=== PATIENT | male | born 1965 | race Caucasian/White ===

== ENCOUNTER 2021-01-19 11:58 | Observation (INO) | payer SELFPAY ==
[~2021-01-19] VITALS: Ht 175.3 cm; Wt 60.0 kg
--- NOTE | 2021-01-19 12:20 | NUR ---
BIBA FOR SI/SA, PER EMS PT WAS ASKING SURFACE ROOM SHOP OPTICIAN TO SHOOT HIM. PT CURRENTLY MAKING SAME STATEMENTS. PT CALM AND COOPERATIVE, A&O, RESPS EVEN AND UNLABORED, VSS, NADN. ALL SECURITY PRECAUTIONS IN PLACE, GARAGE DOORS DOWN, BELONGINGS BAGGED AND PLACED IN ED SECURITY LOCKER, SITTER WITHIN VIEW.
[2021-01-19 13:03] LABS: BASOPHILS % (AUTO) 2 % (0-1); EOSINOPHILS % (AUTO) 2 % (1-7); LYMPHOCYTES % (AUTO) 44 % (22-44); MEAN CORPUSCULAR HEMOGLOBIN 35.7 pg (27.5-34.5); MEAN CORPUSCULAR HGB CONC 34.7 g/dL (33.2-36.2); MEAN PLATELET VOLUME 7.5 fL (7.4-10.4); MONOCYTES % (AUTO) 6 % (2-9); NEUTROPHILS % (AUTO) 47 % (42-75); PLATELET COUNT 221 x10^3/uL (130-400); RED BLOOD COUNT 4.18 x10^6/uL (4.38-5.82); RED CELL DISTRIBUTION WIDTH 12.9 % (9.4-14.8)
[2021-01-19 13:08] LABS: ALANINE AMINOTRANSFERASE 76 U/L (12-78); ALBUMIN 4.2 g/dL (3.4-5.0); ANION GAP 14 mmol/L (5-15); CALCIUM 8.2 mg/dL (8.5-10.1); CHLORIDE 103 mmol/L (98-107); CREATININE 0.59 mg/dL (0.7-1.3); SALICYLATE LEVEL 8.6 mg/dL (2.8-20.0)
[2021-01-19 13:11] LABS: ALKALINE PHOSPHATASE 74 U/L (45-117); BILIRUBIN,TOTAL 0.4 mg/dL (0.2-1.0); TOTAL PROTEIN 7.8 g/dL (6.4-8.2)
[2021-01-19 13:25] LABS: AMPHETAMINE SCREEN, URINE Negative (Negative); BARBITURATE SCREEN, URINE Negative (Negative); BENZODIAZEPINE SCREEN, URINE Negative (Negative); CANNABINOID SCREEN, URINE Negative (Negative); COCAINE SCREEN, URINE Negative (Negative); METHADONE SCREEN, URINE Negative (Negative); OPIATE SCREEN, URINE Negative (Negative)
--- NOTE | 2021-01-19 13:45 | NUR ---
ASSUMED CARE OF PATIENT. BEDSIDE REPORT GIVEN FROM DONATO BURNHAM
--- NOTE | 2021-01-19 14:12 | NUR ---
PT RESTING IN ROOM. SITTER AT DOOR. WILL CONTINUE TO MONITOR.
--- NOTE | 2021-01-19 14:57 | NUR ---
PT RESTING IN ROOM. VS STABLE. SITTER AT DOOR. WILL CONTINUE TO MONITOR.
--- NOTE | 2021-01-19 15:45 | NUR ---
PT RESTING ROOM. NO ACUTE DISTRESS NOTED. CALL LIGHT IN PLACE. WILL CONTINUE TO MONITOR.
--- NOTE | 2021-01-19 15:46 | NUR ---
SITTER AT DOOR. WILL CONTINUE TO MONITOR.
--- NOTE | 2021-01-19 16:34 | NUR ---
Note chen in EDM - 01/19/21 at [address] SWIFT AWARE OF VS. PT DOES NOT WANT A IV. PT IS A&O X4. CALL LIGHT IN PLACE. WILL CONTINUE TO MONITOR.
--- NOTE | 2021-01-19 16:47 | NUR ---
PT RESTING IN ROOM. VS STABLE. NO ACUTE DISTRESS NOTED. SITTER AT DOOR. WILL CONTINUE TO MONITOR.
--- NOTE | 2021-01-19 17:18 | NUR ---
PT RESTING IN ROOM. SITTER AT DOOR. NO ACUTE DISTRESS NOTED. WILL CONTINUE TO MONITOR.
--- NOTE | 2021-01-19 17:50 | NUR ---
PT RESING IN ROOM. VS STABLE. SITTER AT DOOR. WILL CONTINUE TO MONITOR.
--- NOTE | 2021-01-19 18:25 | NUR ---
PT GIVEN DINNER. SITTER AT DOOR. NO ACUTE DISTRESS NOTED.
--- NOTE | 2021-01-19 18:50 | NUR ---
BEDSIDE REPORT GIVEN TO DONATO GARCIA
--- NOTE | 2021-01-19 20:00 | NUR ---
pt resting in bed, provided water and juice per request. no other needs at this time. in line of sight of sitter
--- NOTE | 2021-01-19 22:50 | NUR ---
pt resting in bed. denies any needs at this time. tele psych monitor in room, awaiting call
--- NOTE | 2021-01-20 02:30 | NUR ---
BEDSIDE REPORT RECEIVED FROM RADHA SEWELL
--- NOTE | 2021-01-20 02:57 | NUR ---
PT SUPINE ON HOSPITAL BED RESTING CALMLY. SAFETY PRECAUTIONS IN PLACE, SAFETY RIVERO DOWN AND SITTER IN VIEW. NO NEEDS AT THIS TIME. AWAITING TELEPSYCH.
--- NOTE | 2021-01-20 03:34 | NUR ---
PT ON COMPUTER WITH TELEPSYCH CURRENTLY.
--- NOTE | 2021-01-20 05:12 | NUR ---
packet faxed to [facility]. Self pay insurance.
--- NOTE | 2021-01-20 06:53 | NUR ---
RECEIVED REPORT FROM SANTOSH SEWELL. PT SLEEPING CALMLY ON BED, NAD WITH EQUAL CHEST RISE/FALL, NO NEEDS AT THIS TIME, PT REMAINS IN SAFE ENVIRONMENT, SITTER IN VIEW.
--- NOTE | 2021-01-20 06:55 | NUR ---
BEDSIDE REPORT TO ELIANA SEWELL
--- NOTE | 2021-01-20 08:02 | NUR ---
PT CONTINUES SLEEPING CALMLY ON BED, NAD WITH EQUAL CHEST RISE/FALL, NO NEEDS AT THIS TIME, PT REMAINS IN SAFE ENVIRONMENT, SITTER IN VIEW.
--- NOTE | 2021-01-20 08:25 | NUR ---
MEAL TRAY GIVEN
--- NOTE | 2021-01-20 09:00 | NUR ---
PT SLEEPING CALMLY ON BED, RESPONDS APPROP TO STAFF WHEN AWAKENED, CALM & COOPERATIVE DURING INTERACTIONS, NAD, COMFORT MEASURES PROVIDED, PT REMAINS IN SAFE ENVIRONMENT, SITTER IN VIEW.
--- NOTE | 2021-01-20 10:05 | NUR ---
PT AMBULATED TO & RETURNED TO [facility] WITH STEADY GAIT, CALM & COOPERATIVE, RESPONDS APPROP TO STAFF, COMFORT MEASURES PROVIDED, PT REMAINS IN SAFE ENVIRONMENT, SITTER IN VIEW.
--- NOTE | 2021-01-20 11:04 | NUR ---
PT LAYING ON GURNEY WITH EYES CLOSED, RESPONDS APPROP TO STAFF & CALM/COOPERATIVE DURING INTERACTIONS, NO NEEDS AT THIS TIME, PT REMAINS IN SAFE ENVIRONMENT, SITTER IN VIEW.
--- NOTE | 2021-01-20 11:58 | NUR ---
PT LAYING ON GURNEY AWAKE, CALM & COOPERATIVE, WATCHING TV, RESPONDS APPROP TO STAFF, MEAL TRAY GIVEN- NO OTHER NEEDS AT THIS TIME, PT REMAINS IN SAFE ENVIRONMENT, SITTER IN VIEW.
--- NOTE | 2021-01-20 12:10 | NUR ---
LUNCH TRAY GIVEN
--- NOTE | 2021-01-20 12:52 | NUR ---
TASK RN: PT RESTING IN BED. SITTER REMAINS AT BEDSIDE. ROOM REMAINS SECURE.
--- NOTE | 2021-01-20 14:01 | NUR ---
PT SITTING UP ON GURNEY AWAKE, CALM & COOPERATIVE, WATCHING TV, RESPONDS APPROP TO STAFF, NO NEEDS AT THIS TIME, PT REMAINS IN SAFE ENVIRONMENT, SITTER IN VIEW.
--- NOTE | 2021-01-20 15:02 | NUR ---
PT LAYING ON GURNEY AWAKE, CALM & COOPERATIVE, WATCHING TV, RESPONDS APPROP TO STAFF, COMFORT MEASURES PROVIDED- DENTURES AT BS IN LABELED DENTURE CUP, PT REMAINS IN SAFE ENVIRONMENT, SITTER IN VIEW.
[2021-01-20] MEDS ORDERED: FLUOXETINE 10 MG CAP ONE (15:06)
[2021-01-20] MEDS: FLUOXETINE 10 MG CAP PO SCH (15:07)
--- NOTE | 2021-01-20 16:03 | NUR ---
PT CONTINUES LAYING ON GURNEY AWAKE, CALM & COOPERATIVE, WATCHING TV, RESPONDS APPROP TO STAFF, NO NEEDS AT THIS TIME, PT REMAINS IN SAFE ENVIRONMENT, SITTER IN VIEW.
--- NOTE | 2021-01-20 17:05 | NUR ---
PT LAYING ON GURNEY AWAKE, CALM & COOPERATIVE, WATCHING TV, RESPONDS APPROP TO STAFF, NO NEEDS AT THIS TIME, PT REMAINS IN SAFE ENVIRONMENT, SITTER IN VIEW.
--- NOTE | 2021-01-20 17:31 | NUR ---
MEAL TRAY GIVEN
--- NOTE | 2021-01-20 18:08 | NUR ---
PT CONTINUES LAYING ON GURNEY WITH EYES CLOSED, RESPONDS APPROP TO STAFF & CALM/COOPERATIVE DURING INTERACTIONS, NO NEEDS AT THIS TIME, PT REMAINS IN SAFE ENVIRONMENT, SITTER IN VIEW.
--- NOTE | 2021-01-20 18:58 | NUR ---
REPORT GIVEN TO ORALIA
--- NOTE | 2021-01-20 18:59 | NUR ---
RECIEVED REPORT FROM DONATO MONROY.
--- NOTE | 2021-01-20 19:16 | NUR ---
PATIENT SLEEPING IN HOSPITAL BED, WAKES EASILY AND IS PLEASENT, PATIENT DENIES ANY SI AT THIS TIME.
[2021-01-20] MEDS ORDERED: QUETIAPINE 25MG TABLET PO SCH (21:00)
--- NOTE | 2021-01-20 21:32 | NUR ---
PATIENT SLEEPING IN HOSPITAL BED. SITTER AT BEDSIDE. NAD AT THIS TIME.
--- NOTE | 2021-01-20 22:39 | NUR ---
PATIENT SLEEPING ON HOSPITAL BED, NAD AT THIS TIME, SITTER AT BEDSIDE.
[2021-01-20] MEDS ORDERED: QUETIAPINE 25MG TABLET ONE (23:01)
--- NOTE | 2021-01-20 23:04 | NUR ---
PATIENT MEDICATED PER AT THIS TIME. SECURTIY DOORS DOWN AND LOCKED, SITTER AT BEDSIDE.
--- NOTE | 2021-01-21 01:51 | NUR ---
RECEIVED REPORT. PT SLEEPING AND IN NO ACUTE DISTRESS. SITTER OUTSIDE OF ROOM, EYES ON PT.
--- NOTE | 2021-01-21 05:00 | NUR ---
PATIENT SLEEPING IN HOSPITAL BED. SITTER AT BEDSIDE. NAD AT THIS TIME.
--- NOTE | 2021-01-21 06:31 | NUR ---
PATIENT SLEEPING IN HOSPITAL BED. SITTER AT BEDSIDE. NAD AT THIS TIME.
--- NOTE | 2021-01-21 06:45 | NUR ---
REPORT AND CARE GIVEN TO MARCI SEWELL.
--- NOTE | 2021-01-21 06:56 | NUR ---
REPORT FROM DIONY. PT SLEEPING
--- NOTE | 2021-01-21 08:00 | NUR ---
PT RESTING, MEAL TRAY ORDERED. SITTER PRESENT
[2021-01-21 08:07] VITALS: BP 136/85
--- NOTE | 2021-01-21 09:00 | NUR ---
PT EATING, SITTER PRESENT. GAVE PATIENT OPTION TO SHOWER WHEN NECESSARY
--- NOTE | 2021-01-21 10:17 | NUR ---
PT RESTING, COMPLETED BREAKFAST.
[2021-01-21] MEDS ORDERED: FLUOXETINE 10 MG CAP ONE (11:45)
[2021-01-21] MEDS: FLUOXETINE 10 MG CAP PO SCH (11:47)
--- NOTE | 2021-01-21 12:33 | NUR ---
GIVEN MEAL TRAY. POC TO BE DC
[2021-01-21] MEDS ORDERED: QUET25TA7 PO (12:40)
[2021-01-21] MEDS ORDERED: FLUO10CA15 PO (12:40)
--- NOTE | 2021-01-21 13:11 | NUR ---
BELONGINGS TO PATIENT
--- NOTE | 2021-01-21 13:11 | NUR ---
Patient given discharge instructions and they have confirmed that they understand the instructions. Patient ambulatory with steady gait.
== END 2021-01-21 13:52 | disposition home or self-care (01) ==
LOC: ED 12:52 → EDIP 17:11
PROVIDERS: ADMIT Emergency Medicine; ATTEND Emergency Medicine
DX: F43.23 Adjustment disorder with mixed anxiety and depressed mood (principal); F10.120 Alcohol abuse with intoxication, uncomplicated; R45.851 Suicidal ideations; F17.200 Nicotine dependence, unspecified, uncomplicated; Y90.8 Blood alcohol level of 240 mg/100 ml or more; Z79.899 Other long term (current) drug therapy; Z59.0 Homelessness; Z81.8 Family history of other mental and behavioral disorders
CPT/HCPCS: 36415; 80053; 80299; 80307; 80320; 80329; 85025; 99284; G0378; G0480